=== PATIENT | male | born 1940 | race Caucasian/White ===

== ENCOUNTER 2016-11-25 12:42 | Day surgery (SDC) | payer OTHER ==
[2016-11-24 11:07] VITALS: BMI 28.7
[2016-11-25] MEDS ORDERED: ONDANSETRON 4 MG/2 ML VIAL IVPUSH PRN (14:44)
[2016-11-25] MEDS ORDERED: oxyCODONE HCL 5 MG TABLET PO PRN ×2 (14:44→16:41)
[2016-11-25] MEDS ORDERED: LACTATED RINGERS SOLUTION 1,000 ML IV SCH (14:45)
[2016-11-25] MEDS ORDERED: MIDAZOLAM HCL 2 MG/2 ML SINGLE DOSE VIAL ONE (15:06)
[2016-11-25] MEDS ORDERED: PROPOFOL 20 ML ONE ×2 (15:06)
[2016-11-25] MEDS ORDERED: ceFAZolin SODIUM 1 GM VIAL IVPB ONE (15:48)
[2016-11-25] MEDS ORDERED: GENTAMICIN 80MG PREMIX BAG IVPB ONE (15:49)
[2016-11-25] MEDS ORDERED: DEXAMETHASONE SOD PHOSPHATE 4 MG/1 ML VIAL ONE (15:51)
[2016-11-25] MEDS ORDERED: LIDOCAINE HCL/PF 2% SDV 5ML VIAL ONE (15:51)
[2016-11-25] MEDS ORDERED: KETOROLAC TROMETHAMINE 30 MG/1 ML VIAL ONE (15:51)
[2016-11-25] MEDS ORDERED: GENTAMICIN SO4 80 MG/2 ML VIAL ONE (15:54)
[2016-11-25] MEDS ORDERED: ceFAZolin SODIUM 1 GM VIAL ONE (15:54)
[2016-11-25] MEDS ORDERED: HYDROmorphone HCL CARPU-JECT 2 MG/1 ML DISP.SYRIN IM ONE (16:30)
[2016-11-25] MEDS ORDERED: OXYCODONE/APAP 5/325MG COMBO TABLET PO PRN (16:31)
--- NOTE | 2016-11-25 16:39 | OP ---
Operative Note - Note: Operative Date: 11/25/16 Pre-Operative Diagnosis: rt. hydro rt. upj stone Operation: cysto rt. retro rt. ureteraoscopy and rt. stne basketting and rt. JJ stents Findings: rt. impacted ureteral stone with prox. hydro Post-Operative Diagnosis: Same as Pre-op Surgeon: Gurvinder Dukes Anesthesia: General Specimens Removed: stone, urine Estimated Blood Loss (mls): 0 Drains & Tubes with Location: 24cm 6f rt. jj stent Drains, Volume Out (mls): 0 Operative Report Dictated: Yes
[2016-11-25] MEDS ORDERED: ACETAMINOPHEN 325 MG TABLET (FP) PO PRN (16:41)
[2016-11-25 17:51] VITALS: TEMP 97.8
[2016-11-25 18:41] VITALS: BP 168/71; PULSE 72
--- NOTE | 2016-11-29 08:44 | PATH ---
Surgical Pathology Report Patient Name: OMID SAUCEDO Med. Rec. #: [id number] /Age/Gender: 1940 (Age: 76) / M Account: [id number] Location: [facility] SURGICAL Taken: 11/25/2016 Received: 11/28/2016 Reported: 11/29/2016 Physicians: Gurvinder Dukes M.D. Specimen(s) Received KIDNEY STONE Clinical History Calculus of kidney Final Diagnosis KIDNEY STONE, EXTRACTION: CALCULI SUBMITTED FOR CHEMICAL ANALYSIS (gross only). Electronically Signed Roger Duron M.D. Gross Description Received fresh labeled "kidney stone," is a 0.3 cm in greatest dimension mcrae-moreno, irregular calculus which is sent for chemical analysis. /11/28/201611/28/2016
--- NOTE | 2016-11-29 16:57 | PATH ---
Cytology Non-Gynecological Report Patient Name: OMID SAUCEDO [facility]. Rec. #: [id number] /Age/Gender: 1940 (Age: 76) / M Account: [id number] Location: [facility] SURGICAL Taken: 11/25/2016 Received: 11/28/2016 Reported: 11/29/2016 Physicians: Gurvinder Dukes M.D. Specimen(s) Received URINE VOIDED Clinical History None given Final Diagnosis URINE FOR CYTOLOGY: SATISFACTORY FOR EVALUATION. CLUSTERS OF UROTHELIAL CELLS ARE PRESENT. RED BLOOD CELLS ARE PRESENT IN THE BACKGROUND. Comment: Clusters of urothelial cells are an atypical finding in voided urine, and may be the result of infection, inflammation, or instrumentation. However, the possibility of a low grade urothelial neoplasm cannot be excluded. Recommend correlation with clinical findings and follow up as clinically indicated. Also see [id number]. Electronically Signed Roger Duron M.D. Gross Description Approximately 50 cc of yellow fluid received fresh. Two cytofunnels and one cellblock prepared.
[2016-12-06 00:30] LABS: CA OXALATE DIHYDRATE 30 % (.); COLOR Tan (.); SIZE 3x2x1 mm (.)
== END 2016-11-25 19:07 | disposition home or self-care (01) ==
LOC: JASU-SURG 12:42
PROVIDERS: ATTEND Urology
PROC: 0TC68ZZ Extirpation of Matter from Right Ureter, Via Natural or Artificial Opening Endoscopic (ICD-10-PCS; principal; 2016-11-25 14:30)
PROC: 0T768DZ Dilation of Right Ureter with Intraluminal Device, Via Natural or Artificial Opening Endoscopic (ICD-10-PCS; 2016-11-25 14:30)
DX: N13.2 Hydronephrosis with renal and ureteral calculous obstruction (principal)
CPT/HCPCS: 36415; 76000-TC; 82360; 87086; 88108; 88300-TC; 88305-TC; 94760

== ENCOUNTER 2017-03-09 12:41 | Inpatient (IN) | payer OTHER ==
--- NOTE | 2017-03-09 12:54 | PDOC ---
History of Present Illness - General Chief Complaint: CVA/TIA Stated Complaint: SLURRED SPEECH, RT SIDE NUMBNESS Time Seen by Provider: 03/09/17 12:53 - History of Present Illness Initial Comments: 77 year old male with PMH of HTN and hypothyroidism presenting with 4 days of progressively worsening right hand weakness and 7 hours of slurred speech. He states that his right hand had started to become weak particularly in the mornings with some stiffness and pain over the volar surface of his hand that symptomatically improves with hot water. 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 He is also complaining of some difficulty with his speech/ slurring that began at 6 AM this morning and continued to get worse until his visit to the ED at which point he noticed some slight improvement. He denies history of clots and has never been on blood thinners. Denies fevers, chills, nausea, vomiting, diarrhea, chest pain, leg swelling, palpitations, syncope, or other sick symptoms. 03/09/17 13:13 03/09/17 13:24 Past History - Past Medical History Allergies/Adverse Reactions: Allergies Allergy/AdvReac Type Severity Reaction Status Date / Time No Known Drug Allergies Allergy Verified 03/09/17 12:48 Home Medications: Ambulatory Orders Levothyroxine [Synthroid -] 125 mcg PO DAILY 11/25/16 Valsartan 320 mg PO DAILY 11/25/16 Aspirin [Ecotrin] 81 mg PO DAILY 03/09/17 HTN: Yes Kidney Stones: Yes Thyroid Disease: Yes - Immunization History Immunization Up to Date: Yes - Psycho/Social/Smoking Cessation Hx Suicidal Ideation: No Smoking History: Never smoked Have you smoked in the past 12 months: No Hx Alcohol Use: No Drug/Substance Use Hx: No Substance Use Type: None Hx Substance Use Treatment: No Review of Systems - Review of Systems Constitutional: No: Chills, Diaphoresis, Fever HEENTM: No: Blurred Vision, Recent change in vision Respiratory: No: Cough, Shortness of Breath Cardiac (ROS): No: Edema, Irregular Heart Rate, Lightheadedness ABD/GI: No: Constipated, Diarrhea, Nausea, Poor Appetite : No: Dysuria, Frequency Integumentary: No: Change in Color, Erythema, Lesions Neurological: No: Headache, Numbness, Paresthesia *Physical Exam - Vital Signs Last Vital Signs Temp Pulse Resp BP Pulse Ox 97.9 F 60 18 151/69 99 03/09/17 12:48 03/09/17 12:48 03/09/17 12:48 03/09/17 12:48 03/09/17 12:48 - Physical Exam General Appearance: Yes: Nourished, Appropriately Dressed. No: Apparent Distress HEENT: positive: EOMI, WHIT, Normal ENT Inspection, Hearing Decreased ( Bilateral hearing deficit per his baseline). negative: Normal Voice (Slightly slurred speech) Neck: positive: Trachea midline, Supple. negative: Tender Respiratory/Chest: positive: Lungs Clear, Normal Breath Sounds. negative: Chest Tender, Respiratory Distress, Accessory Muscle Use Cardiovascular: positive: Regular Rhythm, Regular Rate, S1, S2. negative: Edema Gastrointestinal/Abdominal: positive: Normal Bowel Sounds. negative: Tender, Flat, Soft Musculoskeletal: positive: Normal Inspection Integumentary: positive: Normal Color, Dry, Warm Neurologic: positive: production welding supervisor II-XII NML intact, Fully Oriented, Alert, Normal Mood/ Affect. negative: Motor Strength 5/5 (Motor strength 5/5 IN RUE, RLE, LLE, but 4+/5 in LUE) ED Treatment Course - LABORATORY CBC & Chemistry Diagram: 03/09/17 13:50 03/09/17 13:50 Medical Decision Making - Medical Decision Making 77 year old male with 4 days of right hand weakness and 7 hours of slurred speech with last known normal 19:00 03/08/2017. this is most concerning for Intracranial lesion such as stroke vs. mass. This could also quite possibly be some motor neuron disease or rheumatic disease given the nature of his symptoms. 03/09/17 15:29 CT head negative and, after speaking with Dr. Gordon (neurology industrial economist) at approx 15:20 PM, will admit patient for further workup and treat him as a full stroke situation. MRI head, echo, aspirin, and statin all placed. Will admit patient under Dr. Alejandro Iglesias per Dr. Foster. *DC/Admit/Observation/Transfer Diagnosis at time of Disposition: CVA (cerebral vascular accident) - Discharge Dispostion Condition at time of disposition: Stable Admit: Yes - Attestations Physician Attestion: 03/09/17 15:42 I, Dr. Jcarlos Espinal, attest that this document has been prepared under my direction and personally reviewed by me in its entirety. I further attest, that it accurately reflects all work, treatment, procedures and medical decision -making performed by me.
--- NOTE | 2017-03-09 13:44 | PDOC ---
Attending Attestation - Resident Resident Name: Jcarlos Espinal - ED Attending Attestation I have performed the following: I have examined & evaluated the patient, The case was reviewed & discussed with the resident, I agree w/resident's findings & plan, Exceptions are as noted - HPI HPI: 03/09/17 13:37 77yo M hx HTN, hypothyroidism p/w R hand weakness x 4 days and speech difficulty since waking up this AM. Sxs started when he couldn't write 4 days ago, and weakness has gotten worse over 4 days. This morning he woke up with slurred speech at 6am, he was speaking normally last night when he went to bed at 10pm. No headaches, no other focal weakness. No CP, SOB, abd pain, N/V/D, LE edema, rashes, fevers, chills. - Physicial Exam PE: 03/09/17 13:44 GENERAL: Awake, alert, and fully oriented, in no acute distress HEAD: No signs of trauma EYES: PERRLA, EOMI, sclera anicteric, conjunctiva clear ENT: Auricles normal inspection, hearing grossly normal, nares patent, oropharynx clear without exudates. Moist mucosa NECK: Normal ROM, supple, no lymphadenopathy, JVD, or masses LUNGS: Breath sounds equal, clear to auscultation bilaterally. No wheezes, and no crackles HEART: Regular rate and rhythm, normal S1 and S2, no murmurs, rubs or gallops ABDOMEN: Soft, nontender, normoactive bowel sounds. No guarding, no rebound. No masses EXTREMITIES: Normal range of motion, no edema. No clubbing or cyanosis. No cords, erythema, or tenderness NEUROLOGICAL: Cranial nerves intact, negative pronator drift, normal sensation to light touch in all 4 extremities, normal cerebellar exam, normal gait, normal reflexes and tone. +slurred speech, 4+ strength R hand pipeline inspector SKIN: Warm, Dry, normal turgor, no rashes or lesions noted. - Medical Decision Making 03/09/17 13:46 77-year-old male history of hypertension and hypothyroidism presents with 4 days of right hand weakness associated with slurred speech since waking up this morning. Exam with 4+ pipeline inspector strength in RUE and and slurred speech. Patient is out of the stroke window for activation however story is concerning for CVA versus intracranial hemorrhage versus mass effect. -labs -CTH -CXR -UA -neuro c/s -reassess 03/09/17 15:27 CT head negative for acute infarct. Patient continues to have right upper extremity weakness as well as slurred speech. Likely CVA not visualized on CT scan. Consulted neurology, Dr Sparrow who recommends that we give a full dose of aspirin, atorvastatin, order an MRI and echo and admit. Will admit to medicine for further management.
[2017-03-09] MEDS ORDERED: SODIUM CHLORIDE 1,000 ML IV SCH (13:45)
[2017-03-09 13:59] LABS: BASOPHIL 0.2 % (0-2.0); EOSINOPHIL 1.4 % (0-4.5); MCH 30.8 pg (25.7-33.7); MCHC 33.7 g/dl (32.0-35.9); MEAN CELL VOLUME 91.4 fl (80-96); MEAN PLT VOLUME 8.4 fl (7.5-11.1); NEUTROPHILS 72.2 % (42.8-82.8); PLATELET COUNT 106 K/MM3 (134-434); RDW 13.2 % (11.9-15.9); WHITE BLOOD COUNT 5.3 K/mm3 (4.0-10.0)
[2017-03-09 14:16] LABS: INR 1.22 (0.82-1.09); PROTHROMBIN TIME (PATIENT) 13.5 SEC (9.98-11.88)
[2017-03-09 14:19] LABS: ALBUMIN 3.4 g/dl (3.4-5.0); ALK PHOS 58 U/L (45-117); ANION GAP 5 (8-16); BILIRUBIN,TOTAL 0.7 mg/dL (0.2-1.0); CALCIUM 8.5 mg/dL (8.5-10.1); CO2 30 mmol/L (21-32); CREATININE 1.1 mg/dL (0.7-1.3); GLUCOSE,RANDOM 116 mg/dL (74-106); SGOT/AST 6 U/L (15-37); SGPT/ALT 13 U/L (12-78); TOT PROT 6.6 g/dl (6.4-8.2)
[2017-03-09 14:42] LABS: LDL CHOLESTEROL (ONLY SJRH) 80 mg/dL (5-100)
[2017-03-09] MEDS ORDERED: ASPIRIN 81 MG CHEWABLE TABLETS PO ONE (15:26)
[2017-03-09] MEDS ORDERED: ASPIRIN 81 MG CHEWABLE TABLETS ONE (15:31)
[2017-03-09 15:55] LABS: CHOLESTEROL 118 mg/dL (50-200)
[2017-03-09 15:56] LABS: CPK 55 IU/L (39-308); TROPONIN I < 0.02 ng/ml (0.00-0.05)
[2017-03-09] MEDS ORDERED: ATORVASTATIN CA 80 MG TABLET (FP) PO ONE (17:41)
[2017-03-09] MEDS ORDERED: ATORVASTATIN CA 80 MG TABLET (FP) ONE (18:10)
[2017-03-09 18:17] LABS: URINE APPEARANCE CLEAR; URINE BILIRUBIN NEGATIVE (NEGATIVE); URINE BLOOD NEGATIVE (NEGATIVE); URINE COLOR STRAW; URINE GLUCOSE (UA) NEGATIVE (NEGATIVE); URINE KETONE NEGATIVE (NEGATIVE); URINE LEUK ESTERASE NEGATIVE (NEGATIVE); URINE NITRITE NEGATIVE (NEGATIVE); URINE PROTEIN NEGATIVE (NEGATIVE); URINE UROBILINOGEN NEGATIVE mg/dL (0.2-1.0)
[2017-03-09] MEDS ORDERED: ACETAMINOPHEN 325 MG TABLET (FP) PO PRN (19:18)
--- NOTE | 2017-03-09 19:18 | HP ---
Admitting History and Physical - Primary Care Physician PCP: Dr Iglesias/ Dr Huynh Covering - Admission Chief Complaint: Rt Ul weakness/ Slurred speeech History of Present Illness: 77 year old male with PMH of HTN and hypothyroidism presenting with 4 days of progressively worsening right hand weakness and 7 hours of slurred speech. He states that his right hand had started to become weak particularly in the mornings with some stiffness and pain over the volar surface of his hand that symptomatically improves with hot water. 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 He is also complaining of some difficulty with his speech/ slurring that began at 6 AM this morning and continued to get worse until his visit to the ED at which point he noticed some slight improvement. He denies history of clots and has never been on blood thinners. Denies fevers, chills, nausea, vomiting, diarrhea, chest pain, leg swelling, palpitations, syncope, or other sick symptoms. History Source: Patient Limitations to Obtaining History: No Limitations - Past Medical History Cardiovascular: Yes: HTN Musculoskeletal: Yes: Osteoarthritis - Smoking History Smoking history: Never smoked Have you smoked in the past 12 months: No - Alcohol/Substance Use Hx Alcohol Use: No - Social History ADL: Independent Home Medications - Allergies Allergies/Adverse Reactions: Allergies Allergy/AdvReac Type Severity Reaction Status Date / Time No Known Drug Allergies Allergy Verified 03/09/17 12:48 - Home Medications Home Medications: Ambulatory Orders Levothyroxine [Synthroid -] 125 mcg PO DAILY 11/25/16 Valsartan 320 mg PO DAILY 11/25/16 Aspirin [Ecotrin] 81 mg PO DAILY 03/09/17 Review of Systems - Review of Systems Constitutional: reports: Weakness HENT: reports: No Symptoms Neck: reports: No Symptoms Cardiovascular: reports: No Symptoms Respiratory: reports: No Symptoms Gastrointestinal: reports: No Symptoms Genitourinary: reports: No Symptoms Breasts: reports: No Symptoms Reported Musculoskeletal: reports: No Symptoms Integumentary: reports: No Symptoms Neurological: reports: Change in Speech, Weakness (Weakness of Rt UL) Endocrine: reports: No Symptoms Hematology/Lymphatic: reports: No Symptoms Psychiatric: reports: No Symptoms Physical Examination Vital Signs: Vital Signs Temperature 98 F 03/09/17 18:53 Pulse Rate 64 03/09/17 18:53 Respiratory Rate 18 03/09/17 18:53 Blood Pressure 186/84 03/09/17 18:53 O2 Sat by Pulse Oximetry (%) 98 03/09/17 17:47 Problem List - Problems (1) CVA (cerebral vascular accident) Code(s): I63.9 - CEREBRAL INFARCTION, UNSPECIFIED (2) HTN (hypertension) Code(s): I10 - ESSENTIAL (PRIMARY) HYPERTENSION (3) Hypothyroid Code(s): E03.9 - HYPOTHYROIDISM, UNSPECIFIED
[2017-03-09] MEDS: METOPROLOL SUCCINATE 50 MG TAB.SR.24H (FP) PO SCH ×2 (20:31→22:02)
[2017-03-09 22:19] VITALS: BMI 28.1
[2017-03-10] MEDS: LEVOTHYROXINE NA 125 MCG TABLET (FP) PO SCH (06:07)
[2017-03-10 07:53] LABS: MCH 30.9 pg (25.7-33.7); MCHC 34.4 g/dl (32.0-35.9); MEAN CELL VOLUME 89.8 fl (80-96); MEAN PLT VOLUME 9.1 fl (7.5-11.1); PLATELET COUNT 103 K/MM3 (134-434); RDW 13.3 % (11.9-15.9); WHITE BLOOD COUNT 5.3 K/mm3 (4.0-10.0)
[2017-03-10 08:37] LABS: ALBUMIN 3.1 g/dl (3.4-5.0); ALK PHOS 57 U/L (45-117); ANION GAP 5 (8-16); CALCIUM 8.2 mg/dL (8.5-10.1); CHOLESTEROL 106 mg/dL (50-200); CO2 28 mmol/L (21-32); CPK 49 IU/L (39-308); CREATININE 1.1 mg/dL (0.7-1.3); GLUCOSE,RANDOM 82 mg/dL (74-106); LDL CHOLESTEROL (ONLY SJRH) 70 mg/dL (5-100); MAGNESIUM 1.9 mg/dL (1.8-2.4); SGOT/AST 10 U/L (15-37); SGPT/ALT 12 U/L (12-78); TROPONIN I < 0.02 ng/ml (0.00-0.05)
--- NOTE | 2017-03-10 08:47 | CON.NEURO ---
Consult - History of Present Illness History of Present Illness: right arm weakness and slurring of speech for 4 days HPI 77 year old man history of hypothyroidism, hypertension has been having righ tarm weakness and slurred speech. He takes aspirin at home. He denies any stroke or cad in past. He denies smoking. He denies any trauma, fever or leg weakness. He denies any dysphagia, diplopia , or seizures like activity - Past Medical History Cardio/Vascular: Yes: HTN Musculoskeletal: Yes: Osteoarthritis - Alcohol/Substance Use Hx Alcohol Use: No - Smoking History Smoking history: Never smoked Have you smoked in the past 12 months: No - Social History ADL: Independent Home Medications - Allergies Allergies/Adverse Reactions: Allergies Allergy/AdvReac Type Severity Reaction Status Date / Time No Known Drug Allergies Allergy Verified 03/09/17 12:48 - Home Medications Home Medications: Ambulatory Orders Levothyroxine [Synthroid -] 125 mcg PO DAILY 11/25/16 Valsartan 320 mg PO DAILY 11/25/16 Aspirin [Ecotrin] 81 mg PO DAILY 03/09/17 Physical Exam-Neuro Vital Signs: Vital Signs Temperature 98 F 03/10/17 06:28 Pulse Rate 54 L 03/10/17 06:28 Respiratory Rate 18 03/10/17 06:28 Blood Pressure 157/75 03/10/17 06:28 O2 Sat by Pulse Oximetry (%) 98 03/10/17 01:00 Labs: CBC, BMP 03/10/17 05:50 INR, PTT INR 1.22 (0.82-1.09) H 03/09/17 13:50 NIH Stroke Scale - Total Score NIH Stroke Scale Score: 0 Imaging - Results Cat Scan: Report Reviewed, Image Reviewed MRI: Report Reviewed, Image Reviewed Assessment/Plan cc right arm weakness and slurring of speech for 4 days HPI 77 year old man history of hypothyroidism, hypertension has been having righ tarm weakness and slurred speech. He takes aspirin at home. He denies any stroke or cad in past. He denies smoking. He denies any trauma, fever or leg weakness. He denies any dysphagia, diplopia , or seizures like activity Medical History of HTN, Hypothyrodism arthritis Allergies Allergy/AdvReac Type Severity Reaction Status Date / Time No Known Drug Allergies Allergy Verified 03/09/17 12:48 Home Medications Levothyroxine [Synthroid -] 125 mcg PO DAILY 11/25/16 Valsartan 320 mg PO DAILY 11/25/16 Aspirin [Ecotrin] 81 mg PO DAILY 03/09/17 ROS reviewed in chart Neurological Examination Vital Stable Alert oriented x 3 speech is normal able to repeat and follow command no face asymmetry, EOMI and pupils are reactive Right upper extremity weakness grade 4 lower extremity strength is normal sensation isn normal mri showed left pontine acute stroke Assessment left pontine lacunar stroke risk factor hypertension , and age. He was taking aspirin at home. Plan - carotid ultrasound - switch aspirin to plavix ( explained to patient) continue statin - dvt prophylaxis, speech and physical therapy Thanks for consult, For any issue please call content administrator neurology team over the weekend. Stephen Lopez MD Neurology Attending.
[2017-03-10] MEDS: VALSARTAN 160 MG TABLET (UD) PO SCH (09:03)
[2017-03-10] MEDS: METOPROLOL SUCCINATE 50 MG TAB.SR.24H (FP) PO SCH ×2 (09:03→21:29)
[2017-03-10] MEDS: CLOPIDOGREL BISULFATE 75 MG TABLET (FP) PO SCH (09:03)
[2017-03-10] MEDS: PANTOPRAZOLE 40 MG TABLET (FP) PO SCH (09:03)
--- NOTE | 2017-03-10 09:32 | EKG ---
Test Reason : Blood Pressure : / mmHG Vent. Rate : 065 BPM Atrial Rate : 065 BPM P-R Int : 186 ms QRS Dur : 090 ms QT Int : 412 ms P-R-T Axes : 033 040 038 degrees QTc Int : 428 ms NORMAL SINUS RHYTHM NO PREVIOUS ECGS AVAILABLE Confirmed by JOHAN GROVER MD ([id number]) on 03/10/2017 9:32:26 AM Referred By: Confirmed By:JOHAN GROVER MD
[2017-03-10] MEDS ORDERED: ASPIRIN COATED 81 MG TABLET.EC PO SCH (10:00)
--- NOTE | 2017-03-10 10:36 | CONSULT ---
Admitting History and Physical - Primary Care Physician PCP: Jesika Barrera - Admission History of Present Illness: Per EMR: Admission Chief Complaint: Rt Ul weakness/ Slurred speeech History of Present Illness: 77 year old male with PMH of HTN and hypothyroidism presenting with 4 days of progressively worsening right hand weakness and 7 hours of slurred speech. He states that his right hand had started to become weak particularly in the mornings with some stiffness and pain over the volar surface of his hand that symptomatically improves with hot water. 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 He is also complaining of some difficulty with his speech/ slurring that began at 6 AM this morning and continued to get worse until his visit to the ED at which point he noticed some slight improvement. He denies history of clots and has never been on blood thinners. Denies fevers, chills, nausea, vomiting, diarrhea, chest pain, leg swelling, palpitations, syncope, or other sick symptoms. History Source: Patient, Medical Record Limitations to Obtaining History: No Limitations - Past Medical History Cardiovascular: Yes: HTN Musculoskeletal: Yes: Osteoarthritis - Smoking History Smoking history: Never smoked Have you smoked in the past 12 months: No - Alcohol/Substance Use Hx Alcohol Use: No - Social History ADL: Independent History - Admission Reason For Visit: CVA - Diagnostics CT Scan: Report Reviewed MRI: Report Reviewed (Acute left Pontine,chronic right pontine strokes.) - General Mental Status: Alert and Oriented, Awake and Alert, Able to Follow Commands Attention: Intact Ability to Follow Directions: Good Head/Neck Control: WFL - Hearing Hearing: Normal Hearing Aide: No With Patient: No Speech Evaluation - Communication Primary Language: ZAMBIAN Communication: Yes: Dysarthria (Mild) Oral Expression Ability: Yes: Mild Impairment - Speech Production Able to Make Needs Known: Yes: WNL Intelligibility: Yes: Mildly Impaired - Speech Characteristics Voice Loudness: Normal Voice Pitch: Yes: Normal Voice Phonatory-based Quality: Yes: Normal Speech Clarity: < 100% Articulation: Yes: Imprecise (slight) Rate of Speech: Too Slow (slight) - Language/Auditory Comprehension Follows: Yes: 2 Stage Simple Commands - Language/Verbal Expression Able to Respond to Simple Queries: Yes: WNL Able to Communicate Wants and Needs: Yes: WNL Functional Communication Status: Yes: WNL - Memory/Perception tank terminal gauger Memory: Yes: WNL Short Term Memory: Yes: WNL - Swallow Evaluation/Bedside Assessment Current Nutritional Intake: Regular, Thin Liquids Oral Secretions: Yes: WFL Dentition: Yes: Adequate Facial Symmetry at Rest: Symmetrical (right facial twitch. 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.) Facial Symmetry on Retraction: Symmetrical Sensation: Normal Against Resistance Opening: Normal Against Resistance Closing: Normal Pucker Lips: Normal Smile: Normal Lingual Movement: Normal, Symmetric Lingual Speed of Movement: Normal Lingual Movement Strgth Against Opposition: Reduced (slight) Lingual Movement Characteristics: Normal Velopharyngeal Movement: Normal Laryngeal Elevation: WFL Laryngeal Movement: Able to Palpate Rate of Intake: WFL Bolus Size: WFL Labial Seal: WFL Chewing: WFL Oral Prep Time: WFL A-P Transit: WFL Pocketing: None Timing of Swallow: WFL Coughing/Throat Clear: No Change in Voice: No Recommendations - Speech Evaluation, Impression/Plan Impression: Slight dysarthria with reduced articulatory precision and rate.Swallowing is brisk without signs or symptoms of dysphagia. Possibilty of silent aspiration exists in bilateral Pontine strokes. However,clinically pt's swallowing appears function and safe. - Dysphagia Impressions/Plan Dysphagia Impressions: Ongoing Evaluation *Silent aspiration: cannot be R/O at bedside Recommendations: Other (observe for cough,congestion,fever spikes. If so,MBS to r/o silent aspiration.) - Recommendations Diet Consistency: Regular Medication Administration: Whole with water Liquids: Thin Liquids
--- NOTE | 2017-03-10 11:38 | CONS ---
PHYSICAL MEDICINE REHABILITATION CONSULTATION DATE OF CONSULTATION: 03/10/2017 HISTORY OF PRESENT ILLNESS: The patient is a 77-year-old man with past medical history of hypertension, hypothyroidism, who was admitted with slurred speech and right hand numbness and weakness. Patient states his hand started to bother him a few weeks ago, but it was more of a pain at the time. He also noted other aches. A few days prior to admission, he developed slurred speech and finally presented to the emergency room on March 09, 2017. He underwent CT of the head which showed no acute intracranial pathology. Chronic microvascular ischemic changes were noted. Patient also had an MRI of the brain which showed an infarct in the left paramedian alyssa as well as a chronic right-sided infarct in the alyssa. Patient continues to have a mild degree of slurred speech and was seen in neurologic consultation, started on Plavix, also seen by Speech Pathology and apparently has no difficulty with swallowing but again should be monitored. There are no overt signs of dysphagia but should be monitored. Patient's blood work was reviewed. On admission, he had mild thrombocytopenia with a platelet count of 106, and on repeat blood work done today 103. Otherwise, he has normal WBCs 5.3 and hemoglobin 13.0 today and stable. His chemistry within normal limits except for albumin which was slightly low at 3.1. Echocardiogram showed normal left ventricular size and function, and the stroke was thought due to hypertension. Patient has no problems with standing and ambulation and no problems with proximal right upper extremity strength. No blurry vision, double vision. No nausea or vomiting and again no difficulty chewing or swallowing. PAST MEDICAL AND SURGICAL HISTORY: Hypertension, hypothyroidism, osteoarthritis. SOCIAL HISTORY: Lives with his brother in an apartment. Premorbidly, he worked. He drove himself to the hospital and again is independently ambulatory. REVIEW OF SYSTEMS: No headache. No lightheadedness, dizziness, blurry vision, double vision, nausea, vomiting, difficulty swallowing, chewing. No blurry vision. No change in vision or visual field cut. No chest pain, shortness of breath, fever, chills, bowel or bladder incontinence, gait instability. Again, some numbness in the right hand and weakness of the right hand but no other numbness, tingling. No other joint arthralgias except for the right hand. A little slurring in speech but no complaints of word-finding difficulty. No weight loss or weight gain. No rash. PHYSICAL EXAMINATION: General: A friendly man, seen lying in bed. He is awake, alert, cooperative, in no acute distress. HEENT: He is normocephalic and atraumatic. His extraocular muscles appear intact. He has no obvious facial weakness and no oral ulcers. Dry mucous membranes. Neck: Supple. Extremities: Without any pitting edema or calf tenderness. Skin: Without any rash or breakdown. Neuromuscular: He is awake, alert, oriented x3. His cranial nerves 2-12 appear grossly intact. His speech is slightly slurred and dysarthric, but he has no word-finding difficulties, fluent in speech. His cervical range is good. He has good proximal strength in both upper extremities. Mild weakness, 3+ to 4/5 in the right hand with difficulty with fine motor tasks but normal sensation to pinprick in the left upper extremity. Patient has normal strength distally, symmetric reflexes. Good motor power in the lower extremities. Good standing balance. Steady gait without device. He has good joint stability. No arthritic changes in the lower extremities. OVERALL IMPRESSION: 1. Deficits in activities of daily living. 2. Right upper extremity weakness with evidence of a left pontine, acute, non-hemorrhagic cerebrovascular accident with weakness involving his dominant side. 3. Speech dysarthria. 4. No overt signs of dysphagia, but patient could be at risk. 5. Hypertension. 6. Hypothyroidism. 7. Osteoarthritis. PLAN/SUGGESTION: 1. Patient to be seen by Physical Therapy for strengthening exercises of the right hand, fine motor coordination. 2. Ambulate on unit, appears safe. 3. Plavix and anticoagulation per Neurology. 4. Patient will need outpatient occupational therapy for fine motor coordination, strengthening of the right upper extremity. 5. Patient will need outpatient speech therapy. 6. Card provided. Thank you for this referral. DAVID MOJICA M.D. YADIEL/[id number]
--- NOTE | 2017-03-10 20:55 | PN ---
Progress Note, Physician Chief Complaint: Rt UL weakness and slurred speech - Current Medication List Current Medications: Active Medications Acetaminophen (Tylenol -) 650 mg PO Q6H PRN PRN Reason: FEVER OR PAIN Clopidogrel Bisulfate (Plavix -) 75 mg PO DAILY [facility] Last Admin: 03/10/17 09:03 Dose: 75 mg Sodium Chloride (Normal Saline -) 1,000 mls @ 42 mls/hr IV ASDIR [facility] Last Admin: 03/09/17 13:55 Dose: 42 mls/hr Levothyroxine Sodium (Synthroid -) 125 mcg PO DAILY@0700 [facility] Last Admin: 03/10/17 06:07 Dose: 125 mcg Metoprolol Succinate (Toprol Xl -) 50 mg PO BID [facility] Last Admin: 03/10/17 09:03 Dose: 50 mg Pantoprazole Sodium (Protonix -) 40 mg PO DAILY [facility] Last Admin: 03/10/17 09:03 Dose: 40 mg Valsartan (Diovan -) 320 mg PO DAILY [facility] Last Admin: 03/10/17 09:03 Dose: 320 mg - Objective Vital Signs: Vital Signs Temperature 97.9 F 03/10/17 17:00 Pulse Rate 55 L 03/10/17 17:00 Respiratory Rate 20 03/10/17 20:33 Blood Pressure 172/78 03/10/17 17:00 O2 Sat by Pulse Oximetry (%) 100 03/10/17 20:33 Constitutional: Yes: Well Nourished Eyes: Yes: Conjunctiva Clear, EOM Intact HENT: Yes: Atraumatic, Normocephalic Neck: Yes: Supple, Trachea Midline Cardiovascular: Yes: Regular Rate and Rhythm, S1, S2 Respiratory: Yes: Regular, CTA Bilaterally Gastrointestinal: Yes: Normal Bowel Sounds, Soft Edema: No Labs: CBC, BMP 03/10/17 05:50 03/10/17 05:50 INR, PTT INR 1.22 (0.82-1.09) H 03/09/17 13:50 Problem List - Problems (1) CVA (cerebral vascular accident) Code(s): I63.9 - CEREBRAL INFARCTION, UNSPECIFIED (2) HTN (hypertension) Code(s): I10 - ESSENTIAL (PRIMARY) HYPERTENSION (3) Hypothyroid Code(s): E03.9 - HYPOTHYROIDISM, UNSPECIFIED Assessment/Plan MRI left pontine acute stroke Pt will benifit from MRA to better visualize Posterior circulation we will discuss with Neurology Pt will Have PT eval
[2017-03-10] MEDS: HEPARIN NA (PORCINE) 5,000 UNITS/ML 1ML VIAL SQ SCH (22:07)
[2017-03-11] MEDS: METOPROLOL SUCCINATE 50 MG TAB.SR.24H (FP) PO SCH ×3 (06:20→21:08)
[2017-03-11] MEDS: LEVOTHYROXINE NA 125 MCG TABLET (FP) PO SCH (06:20)
[2017-03-11] MEDS: HEPARIN NA (PORCINE) 5,000 UNITS/ML 1ML VIAL SQ SCH ×2 (10:04→21:07)
[2017-03-11] MEDS: VALSARTAN 160 MG TABLET (UD) PO SCH (10:04)
[2017-03-11] MEDS: PANTOPRAZOLE 40 MG TABLET (FP) PO SCH (10:05)
[2017-03-11] MEDS: CLOPIDOGREL BISULFATE 75 MG TABLET (FP) PO SCH (10:05)
--- NOTE | 2017-03-11 13:34 | EKG ---
Test Reason : Blood Pressure : / mmHG Vent. Rate : 055 BPM Atrial Rate : 055 BPM P-R Int : 188 ms QRS Dur : 092 ms QT Int : 448 ms P-R-T Axes : 037 046 047 degrees QTc Int : 428 ms SINUS BRADYCARDIA OTHERWISE NORMAL ECG WHEN COMPARED WITH ECG OF 09-MAR-2017 14:10, NO SIGNIFICANT CHANGE WAS FOUND Confirmed by ALEX PALMA MD ([id number]) on 03/11/2017 1:33:54 PM Referred By: KAEL SANDOVAL Confirmed By:ALEX PALMA MD
--- NOTE | 2017-03-11 14:26 | PN ---
Progress Note (short form) - Note Progress Note: pt seen/ examined chart reviewed pt feels ok denies cp/ sob. denies abd pain. Vital Signs Temp 98.5 F 03/11/17 05:35 Pulse 53 L 03/11/17 09:05 Resp 20 03/11/17 09:05 BP 147/69 03/11/17 09:05 Pulse Ox 98 03/11/17 09:00 Intake & Output 03/10/17 03/11/17 03/11/17 23:59 11:59 23:59 Intake Total 400 100 50 Balance 400 100 50 Intake: Oral 400 100 50 Other: Voiding Method Urinal Toilet Bowel Movement Yes Active Medications Acetaminophen (Tylenol -) 650 mg PO Q6H PRN PRN Reason: FEVER OR PAIN Clopidogrel Bisulfate (Plavix -) 75 mg PO DAILY [facility] Last Admin: 03/11/17 10:05 Dose: 75 mg Heparin Sodium (Porcine) (Heparin -) 5,000 unit SQ BID [facility] Last Admin: 03/11/17 10:04 Dose: 5,000 unit Levothyroxine Sodium (Synthroid -) 125 mcg PO DAILY@0700 [facility] Last Admin: 03/11/17 06:20 Dose: 125 mcg Metoprolol Succinate (Toprol Xl -) 50 mg PO BID [facility] Last Admin: 03/11/17 10:05 Dose: Not Given Pantoprazole Sodium (Protonix -) 40 mg PO DAILY [facility] Last Admin: 03/11/17 10:05 Dose: 40 mg Valsartan (Diovan -) 320 mg PO DAILY [facility] Last Admin: 03/11/17 10:04 Dose: 320 mg CBC, BMP 03/10/17 05:50 03/10/17 05:50 Physiacal Exam Constitutional: Yes: Comfortable Eyes: Yes: Conjunctiva Clear, EOM Intact HENT: Yes: Atraumatic, Normocephalic Neck: Yes: Supple, Trachea Midline Cardiovascular: Yes: Regular Rate and Rhythm, S1, S2 Respiratory: Yes: Regular, CTA Bilaterally Gastrointestinal: Yes: Normal Bowel Sounds, Soft Edema: No Neuro-- Rue - slight weakness Problem List - Problems (1) CVA (cerebral vascular accident) Code(s): I63.9 - CEREBRAL INFARCTION, UNSPECIFIED (2) HTN (hypertension) Code(s): I10 - ESSENTIAL (PRIMARY) HYPERTENSION (3) Hypothyroid Code(s): E03.9 - HYPOTHYROIDISM, UNSPECIFIED Assessment/Plan MRI left pontine acute stroke continue present care monitor bp Pt will benifit from MRA to better visualize Posterior circulation neurology to follow physical therapy will follow
[2017-03-12 05:29] VITALS: PULSE 54; TEMP 98.2
[2017-03-12] MEDS: LEVOTHYROXINE NA 125 MCG TABLET (FP) PO SCH (06:08)
[2017-03-12] MEDS: CLOPIDOGREL BISULFATE 75 MG TABLET (FP) PO SCH (11:03)
[2017-03-12] MEDS: HEPARIN NA (PORCINE) 5,000 UNITS/ML 1ML VIAL SQ SCH (11:03)
[2017-03-12] MEDS: VALSARTAN 160 MG TABLET (UD) PO SCH (11:03)
[2017-03-12] MEDS: PANTOPRAZOLE 40 MG TABLET (FP) PO SCH (11:03)
[2017-03-12] MEDS: METOPROLOL SUCCINATE 50 MG TAB.SR.24H (FP) PO SCH (11:04)
[2017-03-12 11:10] VITALS: BP 150/62
--- NOTE | 2017-03-12 12:47 | DS ---
Physical Examination Vital Signs: Vital Signs Temperature 98.2 F 03/12/17 10:00 Pulse Rate 54 L 03/12/17 10:00 Respiratory Rate 18 03/12/17 10:00 Blood Pressure 150/62 03/12/17 10:00 O2 Sat by Pulse Oximetry (%) 98 03/11/17 20:26 Findings/Remarks: patient feels well wants to go home Reports no complaints Denies chest pain or shortness of breath or abdominal pain Reports right upper extremity is much better Constitutional: Yes: No Distress, Calm Eyes: Yes: Conjunctiva Clear HENT: Yes: WNL Neck: Yes: Supple Cardiovascular: Yes: Regular Rate and Rhythm Respiratory: Yes: CTA Bilaterally Gastrointestinal: Yes: Normal Bowel Sounds, Soft Edema: No Neurological: Yes: Alert, Cran Nerves II-XII Intact, Other (right upper extremity--power improved--able to lift above her head) Psychiatric: Yes: Alert Labs: CBC, BMP 03/10/17 05:50 03/10/17 05:50 Discharge Summary Reason For Visit: CVA Current Active Problems CVA (cerebral vascular accident) (Acute) HTN (hypertension) (Acute) Hypothyroid (Acute) Hospital Course: patient admitted due to right upper extremity weakness Workup showed acute left pontine stroke Neurology followed Aspirin switched to Plavix Ultrasound carotid okay Echocardiogram--- unremarkable Patient now wants to go home Stable Patient strongly advised to follow with neurology as outpatient as well as his PMD Patient in agreement Medications reconciled and discussed with nursing staff Condition: Stable - Instructions Referrals: Adrien Foster MD [Primary Care Provider] - Disposition: HOME - Home Medications Comprehensive Discharge Medication List: Ambulatory Orders Levothyroxine [Synthroid -] 125 mcg PO DAILY 11/25/16 Valsartan 320 mg PO DAILY 11/25/16 Acetaminophen [Tylenol .Regular Strength -] 650 mg PO Q6H PRN #0 tablet Clopidogrel Bisulfate [Plavix -] 75 mg PO DAILY #30 tablet 03/12/17 Metoprolol Succinate [Toprol XL -] 50 mg PO BID #60 tab.sl 03/12/17
== END 2017-03-12 14:27 | disposition home or self-care (01) | DRG 65 ==
LOC: JER 12:41 → JERBED 15:43 → J4W 18:31
PROVIDERS: ADMIT Internal Medicine; ATTEND Internal Medicine
DX: I63.9 Cerebral infarction, unspecified (principal); G81.91 Hemiplegia, unspecified affecting right dominant side; I10 Essential (primary) hypertension; E03.9 Hypothyroidism, unspecified; R29.702 NIHSS score 2
CPT/HCPCS: 36415; 70450-TC; 70551-TC; 80053; 80061; 81003; 82465; 83718; 83721; 83735; 84478; 84484; 85027; 85610; 86850; 86900; 86901; 93005; 93010; 93306-TC; 93880-TC; 97116-GP; 97162-GP; 99284-25; J1644

== ENCOUNTER 2025-03-13 11:08 | Emergency (ER) | payer OTHER ==
[2025-03-13 11:16] VITALS: BMI 25.8
[2025-03-13 12:19] LABS: EPI CELLS 7 /uL (0-25.1); HYALINE CASTS 0 /uL (0-3.1); URINE APPEARANCE CLEAR; URINE BACTERIA 44 /uL (0-1359); URINE BILIRUBIN NEGATIVE (NEGATIVE); URINE COLOR YELLOW; URINE GLUCOSE (UA) NEGATIVE (NEGATIVE); URINE KETONE NEGATIVE (NEGATIVE); URINE LEUK ESTERASE 1+ (NEGATIVE); URINE NITRITE NEGATIVE (NEGATIVE); URINE PROTEIN NEGATIVE (NEGATIVE); URINE RBC 20 /uL (0-23.9); URINE UROBILINOGEN 1.0 mg/dL (0.2-1.0); URINE WBC 71 /uL (0-25.8)
[2025-03-13] MEDS ORDERED: ACETAMINOPHEN INJECTION 100 ML ONE (13:24)
[2025-03-13] MEDS: ACETAMINOPHEN 1000 MG/100 ML BAG IVPB ONE (13:39)
[2025-03-13 13:43] LABS: MEAN PLT VOLUME 11.0 fl (9.4-12.4)
[2025-03-13 13:44] LABS: IMMATURE PLATELET FRACTION # 6.10 x10^3/uL; MCHC 33.5 g/dl (32.3-36.5); MEAN CELL VOLUME 93.4 fl (79.0-92.2); RDW 12.0 % (12.6-16.6)
[2025-03-13 14:18] LABS: GLUCOSE,RANDOM 86.0 mg/dL (74-106); TOT PROT 6.6 g/dl (6.4-8.2)
[2025-03-13 14:19] LABS: CO2 27.0 mmol/L (21-32)
[2025-03-13 14:20] LABS: ALK PHOS 65.0 U/L (40-150)
[2025-03-13 14:23] LABS: SGOT/AST 15.0 U/L (5-34); SGPT/ALT 6.0 U/L (0-55)
[2025-03-13 14:24] LABS: CREATININE 1.5 mg/dL (0.55-1.3)
[2025-03-13 15:40] VITALS: BP 146/95; PULSE 61; RESP 16; TEMP 98
[2025-03-13 19:55] LABS: HCV DIAGNOSTIC IN-HOUSE W/RFLX NON-REACTIVE (NONREACTIVE)
[2025-03-13 19:56] LABS: HIV INTERPRETATION NEGATIVE (NEGATIVE)
== END 2025-03-13 16:21 | disposition home or self-care (01) ==
LOC: JER 11:08
PROC: 3E033NZ Introduction of Analgesics, Hypnotics, Sedatives into Peripheral Vein, Percutaneous Approach (ICD-10-PCS; principal; 2025-03-13)
DX: N39.0 Urinary tract infection, site not specified (principal); N23 Unspecified renal colic
CPT/HCPCS: 36415; 74176-TC; 80053; 81003; 85027; 86803; 87086; 87389; 93005; 93010; 96374; 99285-25